=== PATIENT | male | born 1955 ===

== ENCOUNTER 2016-11-02 15:41 | Inpatient (IN) | payer MEDICAID, OTHER ==
[~2016-11-02] VITALS: Ht 167.6 cm; Wt 72.1 kg
[2016-11-02 18:00] VITALS: BP 119/80; PULSE 77; RESP 16; TEMP 98.2; O2SAT 92
[2016-11-02] MEDS ORDERED: BENZTROPINE MESYLATE 1 MG TAB PO PRN (20:30)
[2016-11-02] MEDS ORDERED: BENZTROPINE MESYLATE 2 MG/2 ML VIAL IM PRN (20:30)
[2016-11-02] MEDS ORDERED: ALUMINUM/MAGNESIUM/SIMETH 30 ML CUP PO PRN (20:30)
[2016-11-02] MEDS ORDERED: diphenhydrAMINE HCL 50 MG CAP - HS PRN PO (20:30)
[2016-11-02] MEDS ORDERED: hydrOXYzine HCL 50 MG TAB PO PRN (20:30)
[2016-11-02] MEDS ORDERED: MAGNESIUM HYDROXIDE SUSP 30 ML CUP PO PRN (20:30)
[2016-11-02] MEDS: NICOTINE 21 MG/24 HR PATCH T-DERMAL SCH (20:36)
[2016-11-02] MEDS: REMOVE OLD NICOTINE PATCH T-DERMAL SCH (21:00)
[2016-11-02] MEDS: BUDESONIDE-FORMOTEROL 160/4.5 MCG INHALER INH SCH (21:00)
[2016-11-02] MEDS: traZODone HCL 50 MG TAB PO SCH (21:05)
[2016-11-02] MEDS: GABAPENTIN 400 MG CAP PO SCH (21:06)
[2016-11-03 06:11] VITALS: BP 102/59; PULSE 64; RESP 16; TEMP 97.9; O2SAT 92
[2016-11-03] MEDS: BUDESONIDE-FORMOTEROL 160/4.5 MCG INHALER INH SCH ×2 (09:00→20:49)
[2016-11-03] MEDS: PANTOPRAZOLE SOD 40 MG DELAYED RELEASE TAB PO SCH (09:14)
[2016-11-03] MEDS: GABAPENTIN 400 MG CAP PO SCH ×4 (09:14→20:50)
[2016-11-03] MEDS: oxyCODONE/ACETAMINOPHEN 7.5 MG/325 MG TAB PO SCH ×3 (09:14→19:26)
[2016-11-03] MEDS: clonazePAM 1 MG TAB PO SCH ×2 (09:14→14:45)
[2016-11-03] MEDS: NICOTINE 21 MG/24 HR PATCH T-DERMAL SCH (09:19)
[2016-11-03 11:54] LABS: ANION GAP 6 MEQ/L (5-15); BICARBONATE 28.3 MEQ/L (21.0-32.0); BLOOD UREA NITROGEN 13 MG/DL (7-18); CHLORIDE 108 MEQ/L (98-107); GLOMERULAR FILTRATION RATE 79 ML/MIN (>89); POTASSIUM 4.3 MEQ/L (3.5-5.1); SODIUM (NA) 142 MEQ/L (136-145)
[2016-11-03 12:03] LABS: FREE T4 0.83 NG/DL (0.76-1.46); LDL CHOLESTEROL 108 MG/DL (0-99)
[2016-11-03 12:22] LABS: AUTOMATED NEUTROPHIL # 5.3 TH/MM3 (1.8-7.7); BASOPHIL # 0.2 TH/MM3 (0-0.2); BASOPHIL % 1.8 % (0.0-2.0); EOSINOPHIL # 0.3 TH/MM3 (0-0.4); EOSINOPHIL % 2.9 % (0.0-4.0); HEMATOCRIT 41.1 % (39.0-51.0); LYMPH % 24.1 % (9.0-44.0); LYMPHOCYTE # 2.1 TH/MM3 (1.0-4.8); MEAN CELL VOLUME 86.6 FL (80.0-100.0); MEAN CORPUSCULAR HGB CONC 32.4 % (32.0-36.0); MONO % 10.1 % (0.0-8.0); NEUT % 61.1 % (16.0-70.0); PLATELET COUNT 160 TH/MM3 (150-450); RED BLOOD COUNT 4.75 MIL/MM3 (4.50-5.90); RED CELL DISTRIBUTION WIDTH 17.2 % (11.6-17.2); WHITE BLOOD COUNT 8.7 TH/MM3 (4.0-11.0)
[2016-11-03 12:29] LABS: HEMO FLAGS DIFF FINAL
--- NOTE | 2016-11-03 15:27 | HHI.HP ---
Provisional Diagnosis Admission Date Nov 02, 2016 at 17:50 [place] I. Adjustment disorder with depressed mood, history of depression and anxiety [place] II. Unspecified personality disorder [place] III. COPD, GERD, HTN, lower back pain Certification of Person's Competence To Provide Express and Informed Consent I have personally examined Wilber Lemus , a person being served at [facility] on, Nov 03, 2016 15:17. Express and informed consent means consent voluntarily given in writing, by a competent person, after sufficient explanation and disclosure of the subject matter involved to enable the person to make a knowing and willful decision without any element of force, fraud, deceit, duress, or other form of constraint or coercion. This person is 18 years of age or older, is not now known to be incompetent to consent to treatment with a guardian advocate, and does not have a health care surrogate or proxy currently making medical treatment decisions. I have found this person to be one of the following: [X] Competent to provide express and informed consent, as defined above, for voluntary admission to this facility and is competent to provide express and informed consent for treatment. He/she has the consistent capacity to make well reasoned, willful, and knowing decisions concerning his or her medical or mental health treatment. The person fully and consistently understands the purpose of the admission for examination/placement and is fully capable of personally exercising all rights assured under [place] Incompetent to provide express and informed consent to voluntary admission, and this is incompetent to provide express and informed consent to treatment. The person must be transferred to involuntary status and a petition for a guardian advocate filed with the Circuit Court. [] Refusing to provide express and informed consent to voluntary admission but is competent to provide express and informed consent for treatment. The person must be discharged or transferred to involuntary status. Form shall be completed within 24 hours of a person's arrival at the receiving facility and filed in the clinical record of each person: 1. Admitted on a voluntary basis 2. Permitted to provide express and informed consent to his/her own treatment 3. Allowed to transfer from involuntary to voluntary status 4. Prior to permitting a person to consent to his or her own treatment after having been previously found incompetent to consent to treatment. History of Present Illness Capacity: Has Capacity HPI The patient is a 61-year-old man, self reported homeless, single, unemployed, on SSI, with psychiatric history of anxiety, depression, no previous psychiatric hospitalizations, 2 previous suicidal attempts, history of self cutting behavior, he is on trazodone 150 mg by PCP, medical history of GERD , back pain, COPD, came to the hospital voluntarily requested psychiatric admission due to suicidal ideation. He says that he has been feeling suicidal since he is homeless. He says that he has the plan to jump in front of a car. Yesterday before coming to the hospital he was delivered rating either jumping in front of a car or jumping off a bridge. But, he decided to come to the hospital looking for help. Patient is interested in social work administrator intervention to find a place to live. Patient reports depression due to his homelessness, anhedonia, hopelessness. He also reported difficulty sleeping at night and decrease energy and sleep. Patient contracted for safety in the unit. He denies visual and auditory hallucinations. Patient is oriented 3, no attention deficit, no gross cognitive impairment present. He denies the use of drugs and alcohol. Review of Systems Constitutional: DENIES: Diaphoretic episodes, Fatigue, Fever, Weight gain, Weight loss, Chills, Dizziness, Change in appetite, Night Sweats Endocrine: DENIES: Heat/cold intolerance, Polydipsia, Polyuria, Polyphagia Eyes: DENIES: Blurred vision, Diplopia, Eye inflammation, Eye pain, Vision loss , Photosensitivity, Double Vision Ears, nose, mouth, throat: DENIES: Tinnitus, Hearing loss, Vertigo, Nasal discharge, Oral lesions, Throat pain, Hoarseness, Ear Pain, Running Nose, Epistaxis, Sinus Pain, Toothache, Odynophagia Respiratory: DENIES: Apneas, Cough, Snoring, Wheezing, Hemoptysis, Sputum production, Shortness of breath Cardiovascular: DENIES: Chest pain, Palpitations, Syncope, Dyspnea on Exertion , PND, Lower Extremity Edema, Orthopnea, Claudication Gastrointestinal: DENIES: Abdominal pain, Black stools, Bloody stools, Constipation, Diarrhea, Nausea, Vomiting, Difficulty Swallowing, Anorexia Genitourinary: DENIES: Sexual dysfunction, Urinary frequency, Urinary incontinence, Urgency, Hematuria, Dysuria, Nocturia, Penile Discharge, Testicular Pain, Testicular Swelling Hematologic/lymphatic: DENIES: Bruising, Lymphadenopathy Immunologic/allergic: DENIES: Eczema, Urticaria Neurologic: DENIES: Abnormal gait, Headache, Localized weakness, Paresthesias, Seizures, Speech Problems, Tremor, Poor Balance Psychiatric: COMPLAINS OF: Suicidal Ideation Past Psych History Violence risk - self (6 mos) Increased Substance Abuse History Drugs/Alcohol past 12 months He denies the use of drugs and alcohol Past Family Social History Coded Allergies: No Known Allergies (Unverified , 11/03/16) Current Medications Medications (Trade) Dose Ordered Sig/Denae Route Start Time Stop Time Status Last Admin (Neurontin) 800 mg QID PO 11/02/16 21:00 11/03/16 14:44 (Percocet 7.5-325 Mg) 1 tab TID PO 11/03/16 09:00 11/03/16 14:45 (Desyrel) 150 mg HS PO 11/02/16 21:00 11/02/16 21:05 (KlonoPIN) 1 mg TID PO 11/03/16 09:00 11/03/16 14:45 (Protonix) 40 mg DAILY PO 11/03/16 09:00 11/03/16 09:14 (Symbicort 160-4.5 Inh) 2 puff BID INH 11/02/16 21:00 11/03/16 09:00 (Atarax) 50 mg Q6H PRN PO 11/02/16 20:30 11/02/16 21:05 (Cogentin) 1 mg Q12H PRN PO 11/02/16 20:30 (Cogentin Inj) 1 mg Q12H PRN IM 11/02/16 20:30 (Benadryl) 50 mg HS PRN PO 11/02/16 20:30 (Tylenol) 650 mg Q4H PRN PO 11/02/16 20:30 (Milk Of Magnesia Liq) 30 ml DAILY PRN PO 11/02/16 20:30 (Mag-Al Plus Susp Liq) 30 ml Q6H PRN PO 11/02/16 20:30 (Habitrol 21 Mg Patch.24 Hr) 1 patch DAILY T-DERMAL 11/02/16 20:36 11/03/16 09:19 Miscellaneous Information 1 HS T-DERMAL 11/02/16 21:00 11/02/16 21:00 Family History He denies psychiatric family hospital Social History Patient was born and raised in [place], he is homeless, single, supported by [facility], Patient's Strengths (min. 2) Verbal communication Physical Exam No withdrawal, no EPS, no tremors, Vital Signs Vital Signs Date Time Temp Pulse Resp B/P Pulse Ox O2 Delivery O2 Flow Rate FiO2 11/03/16 06:11 97.9 64 16 102/59 92 Mental Status Examination Appearance man, age appearing, irritable, cooperative Speech: Unremarkable Orientation: x3 Memory: Unremarkable Thought Process: Logical Thought Content: Unremarkable Hallucination Type: None Attention and Concentration: Good Suicidal Ideation: Yes Previous Suicide Attempts: Yes Homicidal Ideation: No Judgment: Poor Affect: Irritable Mood: Sad Motor Activity: Normal gait Assessment & Plan Problem List: (1) Adjustment disorder with depressed mood Assessment & Plan: Psychiatric evaluation the patient reports moderate to severe depressive symptoms in the context of recent status of homelessness. Patient reports insomnia, decreased appetite, low level of energy, hopelessness , helplessness, suicidal ideation with a plan of jumping in front of a car. Patient definitely needs psychiatric hospitalization for stabilization. Will monitor behavior and mood closely. It is possible that patient could be malingering with secondary gain of using the hospital as a intermediate and get director social, but more longitudinal observation and observation is needed in order to confirm this suspicion. At this moment patient definitely represents an acute danger to himself. We'll restart trazodone 150 at bedtime for depression and insomnia. 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 ICD Code: F43.21 Assessment & Plan Estimated LOS: Bong Nieves MD Nov 03, 2016 15:27
[2016-11-03 16:41] LABS: HEMOGLOBIN A1a 1.3 %; HEMOGLOBIN A1b 1.8 %; HEMOGLOBIN Ao 84.6 %; HEMOGLOBIN LA1C 2.1 %
[2016-11-03 19:23] VITALS: BP 127/80; PULSE 68; RESP 18; TEMP 97.8; O2SAT 94
[2016-11-03] MEDS: traZODone HCL 50 MG TAB PO SCH (20:50)
[2016-11-03] MEDS: REMOVE OLD NICOTINE PATCH T-DERMAL SCH (20:51)
[2016-11-04 05:21] VITALS: BP 105/58; PULSE 63; RESP 16; TEMP 97.9; O2SAT 92
[2016-11-04] MEDS: NICOTINE 21 MG/24 HR PATCH T-DERMAL SCH (08:39)
[2016-11-04] MEDS: oxyCODONE/ACETAMINOPHEN 7.5 MG/325 MG TAB PO SCH ×3 (08:40→18:16)
[2016-11-04] MEDS: PANTOPRAZOLE SOD 40 MG DELAYED RELEASE TAB PO SCH (08:40)
[2016-11-04] MEDS: GABAPENTIN 400 MG CAP PO SCH ×4 (08:40→21:09)
[2016-11-04] MEDS: BUDESONIDE-FORMOTEROL 160/4.5 MCG INHALER INH SCH ×3 (08:41→21:08)
[2016-11-04] MEDS: ACETAMINOPHEN 325 MG TAB PO PRN ×3 (11:02→13:10)
[2016-11-04 18:30] VITALS: BP 131/87; PULSE 67; RESP 17; TEMP 97.1; O2SAT 95
[2016-11-04] MEDS: traZODone HCL 50 MG TAB PO SCH ×2 (20:00→21:08)
[2016-11-04] MEDS: REMOVE OLD NICOTINE PATCH T-DERMAL SCH (20:47)
--- NOTE | 2016-11-04 22:44 | HHI.PYPN ---
Subjective Remarks Pt seen and discussed with staff. Staff report that pt has been uncooperative with care and milieu activities. He c/o depressed mood and states trazodone is only medication which has been helpful. He is irritable and demands that he be prescribed benzodiazepines and states that he will call his outpatient doctor to get them. Psychoeducation about risks of benzodiazepines discussed. Objective Alert: Yes [place]: Person, Place, Date, Situation Mood: Depressed Affect: Other (irritable) Memory Intact: Immediate, Recent, Remote Hallucinations: Other (none) Delusions: No Delusion Type: Other (none) Suicidal: Plan (denies), Ideation Homicidal: Ideation (denies) Insight/Judgment poor Vitals/IOs Vital Signs Date Time Temp Pulse Resp B/P Pulse Ox O2 Delivery O2 Flow Rate FiO2 11/04/16 18:30 97.1 67 17 131/87 95 Assessment & Plan Problem List: (1) Adjustment disorder with depressed mood ICD Code: F43.21 Assessment & Plan Titrate trazodone to target depression. Estimated LOS: days Justification for Cont. Inpt. monitoring for safety. Lesly Jones MD Nov 04, 2016 22:44
[2016-11-05 06:19] VITALS: BP 91/58; PULSE 57; RESP 18; TEMP 97.3; O2SAT 98
[2016-11-05] MEDS: oxyCODONE/ACETAMINOPHEN 7.5 MG/325 MG TAB PO SCH ×3 (08:21→18:00)
[2016-11-05] MEDS: GABAPENTIN 400 MG CAP PO SCH ×4 (08:21→21:18)
[2016-11-05] MEDS: PANTOPRAZOLE SOD 40 MG DELAYED RELEASE TAB PO SCH (08:22)
[2016-11-05] MEDS: NICOTINE 21 MG/24 HR PATCH T-DERMAL SCH (08:25)
[2016-11-05] MEDS: REMOVE OLD NICOTINE PATCH T-DERMAL SCH (08:25)
[2016-11-05] MEDS: ACETAMINOPHEN 325 MG TAB PO PRN (13:56)
[2016-11-05] MEDS ORDERED: DOCUSATE SODIUM 100 MG CAP PO ONE (14:30)
--- NOTE | 2016-11-05 14:54 | HHI.PYPN ---
Subjective Remarks Pt seen and discussed with staff. He has been compliant with medications and denies side effects. He remains depressed and but is less irritable and denies SI today. No HI. He c/o of dysphagia, stating he feels as if he has a knot in his throat. Pt is a heavy smoker. He states that he is having difficulty swallowing food and c/o of pain. Objective Alert: Yes [place]: Person, Place, Date, Situation Mood: Depressed Affect: Restricted Memory Intact: Immediate, Recent, Remote Hallucinations: Other (none) Delusions: No Delusion Type: Other (none) Suicidal: Ideation (denies) Homicidal: Ideation (denies) Insight/Judgment limitted Vitals/IOs Vital Signs Date Time Temp Pulse Resp B/P Pulse Ox O2 Delivery O2 Flow Rate FiO2 11/05/16 06:19 97.3 57 18 91/58 98 Assessment & Plan Problem List: (1) Adjustment disorder with depressed mood ICD Code: F43.21 Assessment & Plan Continue current tx plan as pt improving. Consult hospitalist for dysphagia. Estimated LOS: days Justification for Cont. Inpt. monitoring for safety Lesly Jones MD Nov 05, 2016 14:54
--- NOTE | 2016-11-05 17:07 | PD.CONS ---
HPI Service [facility] Consult Requested By Psychiatry team Reason for Consult Dysphasia Primary Care Physician Unknown Diagnoses: History of Present Illness Written by Shruthi Phillip, acting as scribe for Dr. Hoover on 11/05/16 at 16: 49. Patient is a 61-year-old with primary medical history of sciatica, diverticulitis, GERD who came into the hospital for suicidal ideation, depression. He is admitted to inpatient psychiatry unit for further evaluation. Consulted for dysphagia. Patient seen and examined today. Reports he has been having trouble swallowing associated with painful swallowing. States that this has been worsening for 3 weeks. Difficulty swallowing some liquids and try solid food. Reports 23 weight pound loss but attributes it to depression. He also complains of on and off nausea that also has been increasing. She also states that he is GERD is also increasing and the medication that he is taking now at the hospital is not helping him unlike when he takes omeprazole from home. Patient states last EGD was done about a year ago in [facility] they couldn't find any significant findings. Continues to have chronic pain managed by pain medications. Denies SOB/ dyspnea. Denies chest pain, palpitations, headaches, dizziness. Denies fevers, chills, diarrhea. Denies dysuria. Review of Systems Except as stated in HPI: all other systems reviewed are Neg Past Family Social History Allergies: Coded Allergies: No Known Allergies (Unverified , 11/03/16) Past Medical History GERD Back pain, sciatic Diverticulitis COPD Past Surgical History Multiple orthopedic surgeries Appendectomy Reported Medications Omeprazole 20 mg daily Active Ordered Medications Current Medications Medications (Trade) Dose Ordered Sig/Denae Route Start Time Stop Time Status Last Admin (Neurontin) 800 mg QID PO 11/02/16 21:00 11/05/16 12:27 (Percocet 7.5-325 Mg) 1 tab TID PO 11/03/16 09:00 11/05/16 12:27 (Desyrel) 150 mg HS PO 11/02/16 21:00 11/04/16 21:08 (Protonix) 40 mg DAILY PO 11/03/16 09:00 11/05/16 08:22 (Symbicort 160-4.5 Inh) 2 puff BID INH 11/02/16 21:00 11/04/16 21:08 (Atarax) 50 mg Q6H PRN PO 11/02/16 20:30 11/02/16 21:05 (Cogentin) 1 mg Q12H PRN PO 11/02/16 20:30 (Cogentin Inj) 1 mg Q12H PRN IM 11/02/16 20:30 (Benadryl) 50 mg HS PRN PO 11/02/16 20:30 (Tylenol) 650 mg Q4H PRN PO 11/02/16 20:30 11/05/16 13:56 (Milk Of Magnesia Liq) 30 ml DAILY PRN PO 11/02/16 20:30 11/04/16 13:15 (Mag-Al Plus Susp Liq) 30 ml Q6H PRN PO 11/02/16 20:30 (Habitrol 21 Mg Patch.24 Hr) 1 patch DAILY T-DERMAL 11/02/16 20:36 11/05/16 08:25 Miscellaneous Information 1 HS T-DERMAL 11/02/16 21:00 11/05/16 08:25 Family History Denies any significant family medical history Social History Denies alcohol use Smoker current a 1 pack per day Denies illicit drug use Physical Exam Vital Signs Vital Signs Date Time Temp Pulse Resp B/P Pulse Ox O2 Delivery O2 Flow Rate FiO2 11/05/16 06:19 97.3 57 18 91/58 98 11/04/16 18:30 97.1 67 17 131/87 95 Physical Exam GENERAL: This is a well-nourished, well-developed patient, in no apparent distress. SKIN: Warm and dry. HEAD: Normocephalic. EYES: Pupils equal round and reactive. Extraocular motions intact. No scleral icterus. No injection or drainage. ENT: Nose without bleeding. Throat without erythema. Uvula midline. Airway patent. NECK: Trachea midline. Supple. CARDIOVASCULAR: Regular rate and rhythm without murmurs, gallops, or rubs. RESPIRATORY: Clear to auscultation. Breath sounds equal bilaterally. No wheezes , rales, or rhonchi. GASTROINTESTINAL: Abdomen soft, nondistended. Slight tenderness to palpate midepigastric region. MUSCULOSKELETAL: Extremities without clubbing, cyanosis, or edema. NEUROLOGICAL: Awake and alert. No focal neuro deficit. Motor and sensory grossly within normal limits. Normal speech. Result Diagram: 11/03/16 1033 11/03/16 1033 Assessment and Plan Assessment and Plan Patient is a 61-year-old with primary medical history of sciatica, diverticulitis, GERD who came into the hospital for suicidal ideation, depression. He is admitted to inpatient psychiatry unit for further evaluation. Consulted for dysphagia. Suicidal ideation, depressive disorder - Managed by psychiatry team Dysphasia Odynophagia GERD - Has been ongoing for 3 weeks. Reports weight loss. Reports prior EGD in [place] no significant findings. - Continue Protonix 40 mg daily - Zofran for nausea - Consult GI, appreciate input and recommendations, dysphasia associated with odynophagia - Consult speech to evaluate dysphasia COPD, not in exacerbation Tobacco use - Continue Symbicort use - Smoking cessation counseled - Nicotine patch Chronic back pain, sciatica - Continue with Percocet 7.5/325 mg 3 times a day DVT prop ambulatory the consult was scribed by Ms.Iszenn Phillip ( [facility]). I, Dr.Mohammadreza Hoover, personally performed the physical exam, reviewed the clinical data and discussed the above- noted findings and plan with the patient. Code Status Full code Discussed Condition With Patient, nursing Shruthi Soto Nov 05, 2016 17:07 Mk Hoover MD Nov 05, 2016 17:32 Patient, nursing Shruthi Soto Nov 05, 2016 17:07
[2016-11-05] MEDS ORDERED: ONDANSETRON ODT 4 MG TAB PO PRN (17:15)
[2016-11-05 18:32] VITALS: BP 131/91; PULSE 72; RESP 18; TEMP 97.6; O2SAT 95
[2016-11-05] MEDS: BUDESONIDE-FORMOTEROL 160/4.5 MCG INHALER INH SCH (21:19)
[2016-11-05] MEDS: traZODone HCL 50 MG TAB PO SCH (21:31)
[2016-11-06 06:00] VITALS: BP 101/61; PULSE 61; RESP 18; TEMP 97.5; O2SAT 93
[2016-11-06] MEDS: SUCRALFATE 1 GM TAB PO SCH ×2 (06:04→15:32)
[2016-11-06] MEDS: oxyCODONE/ACETAMINOPHEN 7.5 MG/325 MG TAB PO SCH ×3 (08:23→17:53)
[2016-11-06] MEDS: GABAPENTIN 400 MG CAP PO SCH ×4 (08:23→20:52)
[2016-11-06] MEDS: BUDESONIDE-FORMOTEROL 160/4.5 MCG INHALER INH SCH ×2 (08:23→20:53)
[2016-11-06] MEDS: PANTOPRAZOLE SOD 40 MG DELAYED RELEASE TAB PO SCH ×2 (08:24→20:52)
[2016-11-06] MEDS: NICOTINE 21 MG/24 HR PATCH T-DERMAL SCH (08:25)
--- NOTE | 2016-11-06 09:03 | PD.CONS ---
HPI History of Present Illness This is a 61 year old male with a history of depression, who is currently in the inpatient psychiatric unit for evaluation and treatment of depression with suicidal ideation. GI has been consulted for evaluation of dysphagia with odynophagia. The patient reports that he has a long history of GERD and has been taken omeprazole 20 mg by mouth daily for the past 5 years. He last had an EGD about 2 years ago in [place], but cannot recall the findings. He reports that over the past month he has lost about 25 pounds, but he feels this is more related to his depression and his difficulty swallowing. He started having difficulty swallowing about 3-4 weeks ago with both liquids and solids getting caught in his upper esophagus. He states that when the solid food gets caught, he'll have to drink a large amount of fluids and sometimes he has to cough to bring it back up. He has associated odynophagia when the food is caught. He occasionally has nausea. He is not having any abdominal pain. He is having worsening symptoms with reflux and heartburn. He reports normally this is well controlled with his omeprazole, but since being in the hospital he is having daily symptoms with no relief with the Protonix. He occasionally uses ibuprofen at home but not on a regular basis. He denies any constipation, diarrhea, melena, or hematochezia. (Justina Bellamy) PFSH Past Medical History Sciatica GERD COPD History of diverticulitis Depression Past Surgical History Multiple orthopedic surgeries Endoscopy Appendectomy (Justina Bellamy) Coded Allergies: No Known Allergies (Unverified , 11/03/16) Medications Allergies Coded Allergies Type Severity Reaction Last Updated Verified No Known Allergies 11/03/16 No Family History Denies any pertinent family history Social History Smokes 1 pack of cigarettes per day No alcohol, no illicit drug use (Justina Bellamy) Review of Systems Constitutional: COMPLAINS OF: Fatigue, Weight loss, Change in appetite, DENIES : Fever, Chills Respiratory: COMPLAINS OF: Cough, DENIES: Shortness of breath Gastrointestinal: COMPLAINS OF: Nausea, Difficulty Swallowing, Anorexia, Odynophagia, Swelling of Abdomen, Heartburn, DENIES: Abdominal pain, Black stools, Bloody stools, Constipation, Diarrhea, Hematemesis Musculoskeletal: COMPLAINS OF: Joint pain Integumentary: DENIES: Rash, Jaundice Hematologic/lymphatic: DENIES: Bruising Neurologic: DENIES: Headache Psychiatric: COMPLAINS OF: Depression, DENIES: Confusion (JosesitoJustina) GI Exam Vitals I&O Vital Signs Date Time Temp Pulse Resp B/P Pulse Ox O2 Delivery O2 Flow Rate FiO2 11/06/16 06:00 97.5 61 18 101/61 93 11/05/16 18:32 97.6 72 18 131/91 95 I/O 11/05/16 11/05/16 11/05/16 11/06/16 11/06/16 11/06/16 06:59 14:59 22:59 06:59 14:59 22:59 Intake Total 240 ml Balance 240 ml Intake Oral 240 ml Physical Examination HEENT: Normocephalic; atraumatic; no jaundice. CHEST: CTA CARDIAC: RRR ABDOMEN: Soft, nondistended, nontender; no hepatosplenomegaly; bowel sounds are present in all four quadrants. EXTREMITIES: No clubbing, cyanosis, or edema. SKIN: Normal; no rash; no jaundice. DIRECTOR OF QUANTITATIVE RESEARCH: No focal deficits; alert and oriented times three. (BellamyJustina) Assessment and Plan Plan ASSESSMENT: - Dysphagia, Odynophagia. Pt with long hx of GERD, takes omeprazole at home. 3 -4 week hx of dysphagia with both liquids/solids getting caught in upper esophagus. She either has to drink a large amount of fluids or cough to bring the food boluses back up on the get caught. He has associated odynophagia. Last EGD was 2 years ago in [place], does not recall the findings. Protonix. Carafate. - GERD. Usually controlled with omeprazole 20mg po daily, but states he is having daily symptoms with the protonix. - Nausea. PPI, Carafate, Zofran prn. - Abn. weight loss, decreased appetite. 25 lb weight loss over past month- pt states more related to depression than dysphagia. - Depression with SI. Per psych - COPD per attending. PLAN: - Plan for egd +/- dilatation - Obtain consents - NPO after MN - Increase Protonix to 40mg po BID - Cont. Carafate - Zofran prn - Supportive care - Further recommendations to follow based on results of above - Pt seen and examined by Dr. Garza and myself and this note is written on his behalf (Justina Bellamy) Physician Comments Patient seen and examined Agree with above Continue with current supportive care Monitor labs Plan for an EGD tomorrow (Joshua Garza MD) Justina Bellamy Nov 06, 2016 09:03 Joshua Garza MD Nov 06, 2016 22:09
--- NOTE | 2016-11-06 16:21 | HHI.PYPN ---
Subjective Remarks Was psychiatric evaluation today patient is found in his bed, withdrawn, seems to be guarded, reports sad mood, anhedonia, hopelessness, helplessness, patient stated that he had a bad dream last night, he was treatment with people " it was a very scary dream", he seems to be irritable, reports suicidal thoughts , but not suicidal ideation or plan. She is compliant with medications, no significant side effects. Oriented 3, no gross cognitive impairment. Review of Systems Other No somatic complaints Objective Alert: Yes [place]: Person, Place, Date, Situation Mood: Depressed Affect: Restricted Memory Intact: Immediate, Recent, Remote Hallucinations: Other (none) Delusions: No Delusion Type: Other (none) Suicidal: Ideation (suicidal thoughts) Homicidal: Ideation (denies) Insight/Judgment Poor Vitals/IOs Vital Signs Date Time Temp Pulse Resp B/P Pulse Ox O2 Delivery O2 Flow Rate FiO2 11/06/16 06:00 97.5 61 18 101/61 93 Intake and Output 11/05/16 11/05/16 11/05/16 07:59 15:59 23:59 Intake Total 240 ml Balance 240 ml Assessment & Plan Problem List: (1) Adjustment disorder with depressed mood Assessment & Plan: Antidepressants were raised yesterday, today we'll continue current dose. Brief supportive psychotherapy provided. We'll continue monitoring mood and behavior. ICD Code: F43.21 Assessment & Plan Estimated LOS: days Justification for Cont. Inpt. She has an increased risk to decompensate are of the structured environment. Bong Nieves MD Nov 06, 2016 16:21
[2016-11-06] MEDS: traZODone HCL 50 MG TAB PO SCH (20:52)
[2016-11-06] MEDS: REMOVE OLD NICOTINE PATCH T-DERMAL SCH (20:56)
[2016-11-07 05:54] VITALS: BP 100/61; PULSE 74; RESP 17; TEMP 97.9; O2SAT 94
[2016-11-07] MEDS: SUCRALFATE 1 GM TAB PO SCH (06:32)
[2016-11-07] MEDS: NICOTINE 21 MG/24 HR PATCH T-DERMAL SCH ×2 (09:00→15:15)
[2016-11-07] MEDS: PANTOPRAZOLE SOD 40 MG DELAYED RELEASE TAB PO SCH (09:12)
[2016-11-07] MEDS: GABAPENTIN 400 MG CAP PO SCH ×3 (09:12→21:00)
[2016-11-07] MEDS: oxyCODONE/ACETAMINOPHEN 7.5 MG/325 MG TAB PO SCH (09:13)
[2016-11-07] MEDS: BUDESONIDE-FORMOTEROL 160/4.5 MCG INHALER INH SCH ×3 (09:13→21:00)
--- NOTE | 2016-11-07 09:21 | HHI.DS ---
Psychiatry Discharge Summary Inpatient Psychiatric care?: Yes Advance Directive: No Reason Not Provided: Due to Patient Condition Mental Health AdvanceDirective: No Health Care Proxy: No Admission Admission Date Nov 02, 2016 at 17:50 Admission Diagnosis: (1) Adjustment disorder with depressed mood ICD Code: F43.21 Brief History The patient is a 61-year-old man, self reported homeless, single, unemployed, on SSI, with psychiatric history of anxiety, depression, no previous psychiatric hospitalizations, 2 previous suicidal attempts, history of self cutting behavior, he is on trazodone 150 mg by PCP, medical history of GERD , back pain, COPD, came to the hospital voluntarily requested psychiatric admission due to suicidal ideation. He says that he has been feeling suicidal since he is homeless. He says that he has the plan to jump in front of a car. Yesterday before coming to the hospital he was delivered rating either jumping in front of a car or jumping off a bridge. But, he decided to come to the hospital looking for help. Patient is interested in transition social worker intervention to find a place to live. Patient reports depression due to his homelessness, anhedonia, hopelessness. He also reported difficulty sleeping at night and decrease energy and sleep. Patient contracted for safety in the unit. He denies visual and auditory hallucinations. Patient is oriented 3, no attention deficit, no gross cognitive impairment present. He denies the use of drugs and alcohol. Tobacco Use In Past 30 Days: 5 or More Cigarettes/Day Alcohol Use: Never Hospital Course Patient continues to be depressed, would be transferred to the surgical floor for surgical procedure, but would come back to psychiatry once surgical clear. Results Blood Pressure 100 / 61 Vital Signs Date Time Temp Pulse Resp B/P Pulse Ox O2 Delivery O2 Flow Rate FiO2 11/07/16 05:54 97.9 74 17 100/61 94 Laboratory Results Test 11/03/16 10:33 Hemoglobin A1c 5.7 % (4.3-6.0) Triglycerides Level 152 MG/DL (42-150) Cholesterol Level 190 MG/DL (120-200) LDL Cholesterol 108 MG/DL (0-99) HDL Cholesterol 52.0 MG/DL (40.0-60.0) Summary of Procedures Procedures done Pending results at discharge: No Medications # of Antipsychotic meds at D/C: 0 Approp Antipsych med options 1 - Minimum of three failed multiple trials of monotherapy. 2 - Documented plan to taper to monotherapy due to previous use of multiple meds OR cross-taper in progress at D/C. 3 - Documentation of augmentation of Clozapine. 4 - Justification other than those listed in allowable values 1-3, document here : Discharge Discharge Date: Nov 07, 2016 Discharge Diagnosis: (1) Adjustment disorder with depressed mood ICD Code: F43.21 Mental Status Exam at Disch elderly man, good hygiene, age appearing, calm, distant, guarded. His speech is poor. Affect is dysthymic, mood also dysthymic. No processes logical and coherent. Thought content is devoid of suicidal ideation, homicidal ideation, visual and auditory hallucinations. Insight, impulse control and judgment are fair. Cognition seems to be intact. Pt Condition on Discharge: Guarded Discharge Disposition: Disch to Another Hospital Discharge Instructions Diet Instructions: Heart Healthy Diet Activities you can perform: Weight Bearing as Katie Scheduled Appointment: Discharge Time > 30 minutes Discharge/Advance Care Plan Health Problems: (1) Adjustment disorder with depressed mood Goals to promote your health * To prevent worsening of your condition and complications * To maintain your health at the optimal level Directions to meet your goals Take your medications as prescribed Follow your dietary instruction Follow activity as directed Keep your appointments as scheduled Take your immunizations and boosters as scheduled If your symptoms worsen call your PCP, if no PCP go to Urgent Care Center or Emergency Room For 16/10 questions related to your inpatient stay or results of tests pending at discharge, please contact Dr. Bong Nieves at Smoking is Dangerous to Your Health. Avoid second hand smoking Bong Nieves MD Nov 07, 2016 09:21
[2016-11-07] MEDS ORDERED: GABA800T PO ×2 (10:06)
[2016-11-07] MEDS ORDERED: PANT20 PO (10:06)
[2016-11-07] MEDS ORDERED: TRAZ1TAB45 PO (10:06)
[2016-11-07] MEDS ORDERED: PERC7.5T13 PO (10:06)
[2016-11-07] MEDS ORDERED: ASPI325T PO (10:06)
[2016-11-07] MEDS ORDERED: ALBU6.7H INH (10:07)
[2016-11-07] MEDS ORDERED: ADVA500A INH (10:07)
[2016-11-07] MEDS ORDERED: RESP: ALBUTEROL 2.5 MG/IPRATROPIUM 0.5 MG NEB (PRN) ONE (11:11)
--- NOTE | 2016-11-07 13:49 | EKG ---
Date Performed: 11/07/2016 Time Performed: 08:46:41 PTAGE: 61 years EKG: Sinus rhythm NORMAL ECG NO PREVIOUS TRACING DOCTOR: Naseem Owens Interpretating Date/Time 11/07/2016 13:48:27
[2016-11-07] MEDS ORDERED: LORazepam 2 MG/ML VIAL IM PRN ×2 (14:30)
[2016-11-07] MEDS ORDERED: LORazepam 0.5 MG TAB PO PRN (14:30)
[2016-11-07] MEDS ORDERED: ASPIRIN 325 MG TAB PO SCH (14:30)
[2016-11-07] MEDS ORDERED: ALUMINUM/MAGNESIUM/SIMETH 30 ML CUP PO PRN (14:30)
[2016-11-07] MEDS ORDERED: MAGNESIUM HYDROXIDE SUSP 30 ML CUP PO PRN (14:30)
[2016-11-07] MEDS ORDERED: ACETAMINOPHEN 325 MG TAB PO PRN (14:30)
[2016-11-07] MEDS: PANTOPRAZOLE SOD 20 MG DELAYED RELEASE TAB PO SCH (15:00)
[2016-11-07 15:25] VITALS: BP 119/84; PULSE 71; RESP 18; TEMP 98.2; O2SAT 93
[2016-11-07] MEDS: oxyCODONE/ACETAMINOPHEN 7.5 MG/325 MG TAB PO PRN ×2 (16:18→20:58)
[2016-11-07] MEDS: traZODone HCL 50 MG TAB PO SCH (20:56)
[2016-11-07] MEDS: LORazepam 1 MG TAB PO PRN (20:57)
[2016-11-08] MEDS: oxyCODONE/ACETAMINOPHEN 7.5 MG/325 MG TAB PO PRN ×5 (00:37→18:32)
[2016-11-08 05:46] VITALS: BP 106/59; PULSE 58; RESP 16; TEMP 98; O2SAT 97
[2016-11-08] MEDS: LORazepam 1 MG TAB PO PRN (06:18)
[2016-11-08] MEDS: BUDESONIDE-FORMOTEROL 160/4.5 MCG INHALER INH SCH ×2 (09:00→21:00)
[2016-11-08] MEDS: REMOVE OLD NICOTINE PATCH T-DERMAL SCH ×2 (09:00→21:04)
[2016-11-08] MEDS: NICOTINE 21 MG/24 HR PATCH T-DERMAL SCH (09:39)
[2016-11-08] MEDS: GABAPENTIN 400 MG CAP PO SCH ×4 (09:39→21:00)
[2016-11-08] MEDS: PANTOPRAZOLE SOD 20 MG DELAYED RELEASE TAB PO SCH (09:39)
[2016-11-08] MEDS: CITALOPRAM HYDROBROMIDE 20 MG TAB PO SCH (10:45)
--- NOTE | 2016-11-08 12:28 | HHI.PR ---
Subjective Remarks Follow-up dysphagia, odynophagia, GERD and chronic back pain Patient is status post panendoscopy with biopsy and esophageal dilation 2016 Patient resting in bed in no acute distress awakens easily. Patient reports swallowing is, "as bad as it ever been," patient reports pain with swallowing. Pain is worse with liquids than solids. Per speech therapy evaluation today, "no presence of oropharyngeal this fascia or clinical symptoms of aspiration were noted." Patient offers no other complaints at this time appears to be in no acute distress. Patient denies shortness of breath chest pain nausea vomiting diarrhea constipation fevers or chills Objective Vitals Vital Signs Date Time Temp Pulse Resp B/P Pulse Ox O2 Delivery O2 Flow Rate FiO2 11/08/16 05:46 98.0 58 16 106/59 97 11/07/16 15:25 98.2 71 18 119/84 93 Objective Remarks GENERAL: This is a well-nourished, well-developed patient, in no apparent distress. SKIN: Warm and dry. HEAD: Normocephalic. EYES: Pupils equal round and reactive. Extraocular motions intact. No scleral icterus. No injection or drainage. ENT: Nose without bleeding. Throat without erythema. Uvula midline. Airway patent. NECK: Trachea midline. Supple. CARDIOVASCULAR: Regular rate and rhythm without murmurs, gallops, or rubs. RESPIRATORY: Clear to auscultation. Breath sounds equal bilaterally. No wheezes , rales, or rhonchi. GASTROINTESTINAL: Abdomen soft, nondistended. Slight tenderness to palpate midepigastric region. MUSCULOSKELETAL: Extremities without clubbing, cyanosis, or edema. NEUROLOGICAL: Awake and alert. No focal neuro deficit. Motor and sensory grossly within normal limits. Normal speech. Procedures 11/07/2016 panendoscopy with biopsy and esophageal dilation A/P Problem List: (1) Adjustment disorder with depressed mood ICD Code: F43.21 Status: Acute (2) GERD (gastroesophageal reflux disease) ICD Code: K21.9 Status: Acute (3) Dysphagia ICD Code: R13.10 Status: Acute Assessment and Plan Patient is a 61-year-old with primary medical history of sciatica, diverticulitis, GERD who came into the hospital for suicidal ideation, depression. He is admitted to inpatient psychiatry unit for further evaluation. Consulted for dysphagia. Suicidal ideation, depressive disorder - Managed by psychiatry team Dysphasia Odynophagia GERD - Has been ongoing for 3 weeks. Reports weight loss. Reports prior EGD in [place] no significant findings. - Status post panendoscopy with biopsy EGD and dilation 11/07/2016 - Continue Protonix 40 mg daily - Zofran for nausea - Consult GI, appreciate input and recommendations, dysphasia associated with odynophagia - Consult speech to evaluate dysphasia, per speech therapy evaluation today, no presence of oropharyngeal this fascia or clinical symptoms of aspiration were noted COPD, not in exacerbation Tobacco use - Continue Symbicort use - Smoking cessation counseled - Nicotine patch Chronic back pain, sciatica - Continue with Percocet 7.5/325 mg 3 times a day DVT prop ambulatory Code Status Full code Discussed Condition With Patient, nursing and Martha Chand Nov 08, 2016 12:28
--- NOTE | 2016-11-08 13:20 | HHI.PYPN ---
Subjective Remarks She was sent to live for psychiatric reevaluation, patient is found very irritable, upset. Patient states that he needs his clonazepam or Xanax for anxiety. Patient also is requesting to meet with the child protective services social worker for counseling at least twice a day. When he was explained that before prescribing benzodiazepines or other medication for anxiety have to be tried and also that counseling most probably won't happen more than once a day, he became agitated and verbally hostile, but he was verbally de-escalate it. Patient also is complaining that his pain has been undertreated by medical team. He was explained that he would be started in citalopram 20 mg and hydroxyzine 50 mg 3 times per day to help with depression and anxiety. He expresses his unhappiness with his regimen having that "I'm in a request to discharge or to change to another doctor". Review of Systems Other No somatic complaints at this moment Objective Alert: Yes [employer]: Person, Place, Date, Situation Mood: Angry Affect: Other (dysphoric) Memory Intact: Immediate, Recent, Remote Hallucinations: Other (none) Delusions: No Delusion Type: Other (none) Suicidal: Ideation (he denies at this moment) Homicidal: Ideation (denies) Insight/Judgment Poor Vitals/IOs Vital Signs Date Time Temp Pulse Resp B/P Pulse Ox O2 Delivery O2 Flow Rate FiO2 11/08/16 05:46 98.0 58 16 106/59 97 Assessment & Plan Problem List: (1) Adjustment disorder with depressed mood Assessment & Plan: On psychiatric evaluation today patient continues to report depression, but denies suicidal ideation. Patient is requesting benzodiazepines for more medication for pain. Also requesting more sessions of individual counseling. Today at had the impression that patient most probably his drug seeking. This is patient was wildly discussed with psychiatric team including nursing charge and child protective services social worker. Will monitor closely behavior and mood. I will restart hydroxyzine 50 mg every 8 hours and citalopram 20 mg for depression and anxiety. Extensive psychoeducation provided. ICD Code: F43.21 Assessment & Plan Estimated LOS: days Justification for Cont. Inpt. He has an elevated risk to decompensate at a lower level of care. Bong Nieves MD Nov 08, 2016 13:20
[2016-11-08] MEDS: hydrOXYzine HCL 50 MG TAB PO SCH ×2 (14:16→19:00)
[2016-11-08] MEDS: traZODone HCL 50 MG TAB PO SCH (21:00)
[2016-11-09] MEDS: hydrOXYzine HCL 50 MG TAB PO SCH ×3 (03:00→17:10)
[2016-11-09 05:34] VITALS: BP 91/53; PULSE 56; RESP 18; TEMP 97.4; O2SAT 95
[2016-11-09] MEDS: CITALOPRAM HYDROBROMIDE 20 MG TAB PO SCH (08:47)
[2016-11-09] MEDS: GABAPENTIN 400 MG CAP PO SCH ×4 (08:48→20:57)
[2016-11-09] MEDS: PANTOPRAZOLE SOD 20 MG DELAYED RELEASE TAB PO SCH (08:48)
[2016-11-09] MEDS: BUDESONIDE-FORMOTEROL 160/4.5 MCG INHALER INH SCH ×2 (08:49→21:00)
[2016-11-09] MEDS: NICOTINE 21 MG/24 HR PATCH T-DERMAL SCH (08:53)
[2016-11-09] MEDS: REMOVE OLD NICOTINE PATCH T-DERMAL SCH (08:53)
[2016-11-09] MEDS: oxyCODONE/ACETAMINOPHEN 7.5 MG/325 MG TAB PO PRN ×4 (08:53→20:58)
--- NOTE | 2016-11-09 09:51 | HHI.GIFU ---
Subjective Remarks Resting in bed. States that he is having pain when he swallows. He is also having some dysphagia- states solids are getting caught. He tolerated the scrambled eggs but was afraid to try anything else because he was afraid it would not go down. Heartburn slightly improved. (Justina Bellamy) Objective Vitals I&O Vital Signs Date Time Temp Pulse Resp B/P Pulse Ox O2 Delivery O2 Flow Rate FiO2 11/09/16 05:34 97.4 56 18 91/53 95 Physical Exam HEENT: Normocephalic; atraumatic; no jaundice. CHEST: CTA CARDIAC: RRR ABDOMEN: Soft, nondistended, nontender; no hepatosplenomegaly; bowel sounds are present in all four quadrants. EXTREMITIES: No clubbing, cyanosis, or edema. SKIN: Normal; no rash; no jaundice. HOME HEALTH CARE PHYSICIAN: No focal deficits; alert and oriented times three. (Justina Bellamy) Assessment and Plan Plan ASSESSMENT: - Dysphagia, Odynophagia. Pt with long hx of GERD, takes omeprazole at home. 3 -4 week hx of dysphagia with both liquids/solids getting caught in upper esophagus. She either has to drink a large amount of fluids or cough to bring the food boluses back up on the get caught. He has associated odynophagia. S/P EGD with dilation and biopsy (11/07/16)--- > normal egd, s/p 17 mm savory wire. Random esophageal bx without significant histopathologic abnormality. Pt continues to have difficulty with painful swallowing and states that food will get caught when he tries to eat. He tolerated the scrambled eggs, but was afraid to try anything else for fear of it becoming lodged in esophagus. S/P ST evaluation, regular diet with thin liquids. Protonix. Carafate. - GERD. PPI - Nausea. PPI, Carafate, Zofran prn. - Abn. weight loss, decreased appetite. 25 lb weight loss over past month- pt states more related to depression than dysphagia. - Depression with SI. Per psych - COPD per attending. PLAN: - BIMAL - PPI/Carafate - Zofran prn - Barium swallow - Supportive care - Further recommendations to follow based on results of above - Pt seen and examined by Dr. Garza and myself and this note is written on his behalf (Justina Bellamy) Physician Comments Patient seen and examined Agree with above Continue with current supportive care Monitor labs Barium swallow also unremarkable No obvious cause for dysphagia at this point patient may resume diet Further recommendations shall depend on his hospital course (Joshua Garza MD) Justina Bellamy Nov 09, 2016 09:51 Joshua Garza MD Nov 09, 2016 18:02
[2016-11-09] MEDS: SUCRALFATE 1 GM/10 ML CUP PO SCH ×3 (10:56→20:56)
--- NOTE | 2016-11-09 13:24 | HHI.PYPN ---
Subjective Remarks Patient was seen today for psychiatric reevaluation along with medical student Yesenia, patient was found in his room and shaving his face, he reports to be in a better mood today, he says that trazodone seems to be working ok, patient is future oriented, already focus in his discharge plan. Patient is oriented 3, compliant with medications, no significant side effects. Patient still reported some difficulty sleeping at night and with anxiety during the day, but hydroxyzine 50 mg 3 times a day seems to be working appropriately. Review of Systems Other No somatic complaints Objective Alert: Yes [place]: Person, Place, Date, Situation Mood: Calm Affect: Appropriate Memory Intact: Immediate, Recent, Remote Hallucinations: Other (none) Delusions: No Delusion Type: Other (none) Suicidal: Ideation (he denies at this moment) Homicidal: Ideation (denies) Insight/Judgment Improved Vitals/IOs Vital Signs Date Time Temp Pulse Resp B/P Pulse Ox O2 Delivery O2 Flow Rate FiO2 11/09/16 05:34 97.4 56 18 91/53 95 Assessment & Plan Problem List: (1) Adjustment disorder with depressed mood Assessment & Plan: We will increase trazodone to 200 mg at bedtime to address low mood and insomnia. ICD Code: F43.21 Assessment & Plan Estimated LOS: days Justification for Cont. Inpt. Patient has an increased chance to decompensate at the lower level of care. Bong Nieves MD Nov 09, 2016 13:24
--- NOTE | 2016-11-09 13:45 | HHI.PR ---
Subjective Remarks Follow-up dysphagia, odynophagia, GERD and chronic back pain Patient is status post panendoscopy with biopsy and esophageal dilation 2016 Patient resting in bed in no acute distress awakens easily. Patient reports swallowing continues to be painful described as a stabbing sensation. Pain is worse with liquids than solids. Patient reports he feels as though, "my rhythm is off," when he tries to swallow. Per speech therapy evaluation today, "no presence of oropharyngeal this fascia or clinical symptoms of aspiration were noted." Patient offers no other complaints at this time appears to be in no acute distress. Patient denies shortness of breath chest pain nausea vomiting diarrhea constipation fevers or chills Objective Vitals Vital Signs Date Time Temp Pulse Resp B/P Pulse Ox O2 Delivery O2 Flow Rate FiO2 11/09/16 05:34 97.4 56 18 91/53 95 Objective Remarks GENERAL: This is a well-nourished, well-developed patient, in no apparent distress. SKIN: Warm and dry. HEAD: Normocephalic. EYES: Pupils equal round and reactive. Extraocular motions intact. No scleral icterus. No injection or drainage. ENT: Nose without bleeding. Throat without erythema. Uvula midline. Airway patent. NECK: Trachea midline. Supple. CARDIOVASCULAR: Regular rate and rhythm without murmurs, gallops, or rubs. RESPIRATORY: Clear to auscultation. Breath sounds equal bilaterally. No wheezes , rales, or rhonchi. GASTROINTESTINAL: Abdomen soft, nondistended. Slight tenderness to palpate midepigastric region. MUSCULOSKELETAL: Extremities without clubbing, cyanosis, or edema. NEUROLOGICAL: Awake and alert. No focal neuro deficit. Motor and sensory grossly within normal limits. Normal speech. Procedures 11/07/2016 panendoscopy with biopsy and esophageal dilation A/P Problem List: (1) Adjustment disorder with depressed mood ICD Code: F43.21 Status: Acute (2) GERD (gastroesophageal reflux disease) ICD Code: K21.9 Status: Acute (3) Dysphagia ICD Code: R13.10 Status: Acute Assessment and Plan Patient is a 61-year-old with primary medical history of sciatica, diverticulitis, GERD who came into the hospital for suicidal ideation, depression. He is admitted to inpatient psychiatry unit for further evaluation. Consulted for dysphagia. Suicidal ideation, depressive disorder - Managed by psychiatry team Dysphasia Odynophagia GERD - Has been ongoing for 3 weeks. Reports weight loss. Reports prior EGD in [place] no significant findings. - Status post panendoscopy with biopsy EGD and dilation 11/07/2016 - Continue Protonix 40 mg daily - Zofran for nausea - Consult GI, appreciate input and recommendations, dysphasia associated with odynophagia - Consult speech to evaluate dysphasia, per speech therapy evaluation today, no presence of oropharyngeal this fascia or clinical symptoms of aspiration were noted - Barium swallow ordered and pending COPD, not in exacerbation Tobacco use reports new cough - Continue Symbicort use - Smoking cessation counseled - Nicotine patch - CXR ordered - CBC in AM Chronic back pain, sciatica - Continue with Percocet 7.5/325 mg 3 times a day DVT prop ambulatory Code Status Full code Discussed Condition With Patient, nursing and Martha Chand Nov 09, 2016 13:45
--- NOTE | 2016-11-09 15:12 | RADRPT ---
EXAM DATE/TIME: 11/09/2016 14:52 [facility] COMPARISON: No previous studies available for comparison. INDICATIONS : Cough. MEDICAL HISTORY : Chronic obstructive pulmonary disease. SURGICAL HISTORY : None. ENCOUNTER: Initial ACUITY: 1 day PAIN SCORE: 0/10 LOCATION: Bilateral chest FINDINGS: Bibasilar atelectatic changes are noted. The heart is normal. The pulmonary vascular pattern is agustina l. The lungs are otherwise clear. CONCLUSION: Bibasilar atelectatic changes. Ulises Sousa MD on November 09, 2016 at 15:09 Board Certified Radiologist. This report was verified electronically.
--- NOTE | 2016-11-09 15:49 | RADRPT ---
EXAM DATE/TIME: 11/09/2016 14:52 [facility] COMPARISON: No previous studies available for comparison. INDICATIONS : Dysphagia. FLUORO TIME: 2.1 minutes IMAGE COUNT: 14 CONTRAST: 1. E-Z HD Barium Sulfate (98% w/w) Liquid E-Z Paque Barium Sulfate (60% w/v, 41% w.w) MEDICAL HISTORY : Chronic obstructive pulmonary disease. SURGICAL HISTORY : endoscopy with biopsy and dilitation. ENCOUNTER: Initial ACUITY: 1 day PAIN SCORE: 9/10 LOCATION: Bilateral neck FINDINGS: Air-contrast views of the hypopharynx demonstrate a normal mucosal surface without filling defect. R apid sequence images of the hypopharynx and cervical esophagus during the passage of barium demonstra te a normal swallowing function. No evidence of aspiration. Multiphasic examination of the esophagu s demonstrates no esophageal fold thickening, ulceration, or filling defect. The gastroesophageal ju nction is normal in configuration without evidence of hiatal hernia. CONCLUSION: Unremarkable exam. Tio Gonzalez MD on November 09, 2016 at 15:42 Board Certified Radiologist. This report was verified electronically.
[2016-11-09 18:21] VITALS: BP 123/85; PULSE 68; RESP 16; TEMP 98; O2SAT 95
[2016-11-09] MEDS: PANTOPRAZOLE SOD 40 MG DELAYED RELEASE TAB PO SCH (20:57)
[2016-11-09] MEDS ORDERED: traZODone HCL 100 MG TAB PO SCH (21:00)
[2016-11-10] MEDS: hydrOXYzine HCL 50 MG TAB PO SCH ×2 (03:00→11:11)
[2016-11-10] MEDS: oxyCODONE/ACETAMINOPHEN 7.5 MG/325 MG TAB PO PRN ×3 (05:09→13:34)
[2016-11-10] MEDS: ALBUTEROL SULFATE 90 MCG/ACT HFA 18 GM INHALER INH PRN ×2 (05:11→08:39)
[2016-11-10 05:32] VITALS: BP 85/58; PULSE 60; RESP 18; TEMP 98
[2016-11-10] MEDS: SUCRALFATE 1 GM/10 ML CUP PO SCH ×2 (06:32→11:11)
[2016-11-10] MEDS: PANTOPRAZOLE SOD 40 MG DELAYED RELEASE TAB PO SCH (08:40)
[2016-11-10] MEDS: CITALOPRAM HYDROBROMIDE 20 MG TAB PO SCH (08:40)
[2016-11-10] MEDS: GABAPENTIN 400 MG CAP PO SCH ×2 (08:40→12:40)
[2016-11-10] MEDS: NICOTINE 21 MG/24 HR PATCH T-DERMAL SCH (08:40)
[2016-11-10] MEDS: REMOVE OLD NICOTINE PATCH T-DERMAL SCH (09:00)
[2016-11-10] MEDS: BUDESONIDE-FORMOTEROL 160/4.5 MCG INHALER INH SCH (09:00)
[2016-11-10 09:21] VITALS: BP 102/69
[2016-11-10 11:03] LABS: AUTOMATED NEUTROPHIL # 4.8 TH/MM3 (1.8-7.7); BASOPHIL # 0.3 TH/MM3 (0-0.2); BASOPHIL % 3.3 % (0.0-2.0); EOSINOPHIL # 0.2 TH/MM3 (0-0.4); EOSINOPHIL % 2.4 % (0.0-4.0); HEMATOCRIT 39.8 % (39.0-51.0); HEMO FLAGS DIFF FINAL; LYMPHOCYTE # 2.9 TH/MM3 (1.0-4.8); MEAN CELL VOLUME 85.7 FL (80.0-100.0); MEAN CORPUSCULAR HEMOGLOBIN 28.5 PG (27.0-34.0); MEAN CORPUSCULAR HGB CONC 33.3 % (32.0-36.0); MONO % 11.6 % (0.0-8.0); NEUT % 51.7 % (16.0-70.0); PLATELET COUNT 147 TH/MM3 (150-450); RED BLOOD COUNT 4.65 MIL/MM3 (4.50-5.90); RED CELL DISTRIBUTION WIDTH 17.4 % (11.6-17.2); WHITE BLOOD COUNT 9.3 TH/MM3 (4.0-11.0)
[2016-11-10] MEDS ORDERED: CELE20TA PO (12:51)
[2016-11-10] MEDS ORDERED: TRAZ50TA12 PO (12:51)
[2016-11-10] MEDS ORDERED: NEUR400C PO (12:51)
[2016-11-10] MEDS ORDERED: HYDR50TA94 PO (12:51)
--- NOTE | 2016-11-10 13:05 | HHI.DS ---
Psychiatry Discharge Summary Inpatient Psychiatric care?: No Advance Directive: No Reason Not Provided: Due to Patient Condition Mental Health AdvanceDirective: No Health Care Proxy: No Admission Admission Date Nov 02, 2016 at 17:50 Admission Diagnosis: (1) Adjustment disorder with depressed mood ICD Code: F43.21 Brief History The patient is a 61-year-old man, self reported homeless, single, unemployed, on SSI, with psychiatric history of anxiety, depression, no previous psychiatric hospitalizations, 2 previous suicidal attempts, history of self cutting behavior, he is on trazodone 150 mg by PCP, medical history of GERD , back pain, COPD, came to the hospital voluntarily requested psychiatric admission due to suicidal ideation. He says that he has been feeling suicidal since he is homeless. He says that he has the plan to jump in front of a car. Yesterday before coming to the hospital he was delivered rating either jumping in front of a car or jumping off a bridge. But, he decided to come to the hospital looking for help. Patient is interested in social services manager intervention to find a place to live. Patient reports depression due to his homelessness, anhedonia, hopelessness. He also reported difficulty sleeping at night and decrease energy and sleep. Patient contracted for safety in the unit. He denies visual and auditory hallucinations. Patient is oriented 3, no attention deficit, no gross cognitive impairment present. He denies the use of drugs and alcohol. Tobacco Use In Past 30 Days: 5 or More Cigarettes/Day Alcohol Use: Never Hospital Course Patient was admitted in the psychiatric unit due to depressive symptoms and suicidal ideation. Appropriate safety measure were taken. Psychosocial and psychiatric assessment were done. Patient was restarted in psychotropics, individual and group psychotherapy. Patient was also seen by hospitalist for underlying medical conditions. Since the beginning of the hospitalization patient stated that he has a long history of suicidal thoughts, self cutting behavior and chronic depression. During the hospitalization patient was demanding, with a pronounced drug seeking behavior of benzodiazepines and opiates, also sexually inappropriate with social workers. Since patient did not have a clear indication for benzodiazepines and due to the potential for abuse of these drugs I discontinue clonazepam 1 mg twice a day. Patient became very upset with me stating that without benzodiazepines he can become even more suicidal. I started him in hydroxyzine 50 mg 3 times a day and increase trazodone to 200 mg at bedtime. With supportive psychotherapy, insight oriented psychotherapy and medication patient's mood improved. He agree with be discharged to a half-way, but threatened psychiatric team of coming back with depression and suicidal ideation if he is not discharged with clonazepam and opiates. I clarified that there is no indication for this medication at this moment. It is clear that this is pure antisocial behavior and not secondary to any major psychiatric illness decompensation. At this moment I slag mixer the patient does not benefit of psychiatric admission. Results Blood Pressure 102 / 69 Vital Signs Date Time Temp Pulse Resp B/P Pulse Ox O2 Delivery O2 Flow Rate FiO2 11/10/16 09:21 102/69 11/10/16 05:32 98.0 60 18 11/09/16 18:21 95 Laboratory Tests Test 11/10/16 09:59 Red Cell Distribution Width 17.4 % (11.6-17.2) Platelet Count 147 TH/MM3 (150-450) Monocytes (%) (Auto) 11.6 % (0.0-8.0) Basophils (%) (Auto) 3.3 % (0.0-2.0) Monocytes # (Auto) 1.1 TH/MM3 (0-0.9) Basophils # (Auto) 0.3 TH/MM3 (0-0.2) Summary of Procedures No procedures Imaging Last Impressions Chest X-Ray 11/09/16 0000 Signed Impressions: Service Date/Time: October 14:52 - CONCLUSION: Bibasilar atelectatic changes. Ulises Sousa MD Barium Swallow X-Ray 11/09/16 0000 Signed Impressions: Service Date/Time: October 14:52 - CONCLUSION: Unremarkable exam. Tio Gonzalez MD Pending results at discharge: No Medications # of Antipsychotic meds at D/C: 0 Approp Antipsych med options 1 - Minimum of three failed multiple trials of monotherapy. 2 - Documented plan to taper to monotherapy due to previous use of multiple meds OR cross-taper in progress at D/C. 3 - Documentation of augmentation of Clozapine. 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, time, but irritable and demanding. His speech is fluent and spontaneous. His mood is "irritated", affect is restricted. Thought process is linear, coherent and relevant. Thought content is devoid of homicidal ideation, visual and auditory hallucinations. Patient endorses suicidal thoughts, chronic, for a long time, no specific plan at the moment. Insight, impulse control, judgment are fair. Cognition is intact Pt Condition on Discharge: Guarded Discharge Disposition: Disch to Another Hospital Discharge Instructions Diet Instructions: Heart Healthy Diet Activities you can perform: Weight Bearing as Katie Scheduled Appointment: Prashant Callahan Act Appointment Date: Nov 13, 2016 Appointment Time: 7:30 a.m. Discharge Time > 30 minutes Discharge/Advance Care Plan Health Problems: (1) Adjustment disorder with depressed mood Goals to promote your health * To prevent worsening of your condition and complications * To maintain your health at the optimal level Directions to meet your goals Take your medications as prescribed Follow your dietary instruction Follow activity as directed Keep your appointments as scheduled Take your immunizations and boosters as scheduled If your symptoms worsen call your PCP, if no PCP go to Urgent Care Center or Emergency Room For 16/10 questions related to your inpatient stay or results of tests pending at discharge, please contact Dr. Bong Nieves at Smoking is Dangerous to Your Health. Avoid second hand smoking Bong Nieves MD Nov 10, 2016 13:05
== END 2016-11-10 14:40 | disposition home or self-care (01) | DRG 881 ==
LOC: H260 17:50 → UNDODISIN 11-07 09:20
PROVIDERS: ADMIT Psychiatry & Neurology Psychiatry; ATTEND Psychiatry & Neurology Psychiatry
DX: F43.21 Adjustment disorder with depressed mood (principal); R13.10 Dysphagia, unspecified; R45.851 Suicidal ideations; I10 Essential (primary) hypertension; J44.9 Chronic obstructive pulmonary disease, unspecified; F60.9 Personality disorder, unspecified; K21.9 Gastro-esophageal reflux disease without esophagitis; G89.29 Other chronic pain; M54.30 Sciatica, unspecified side; G47.00 Insomnia, unspecified; F41.9 Anxiety disorder, unspecified; F17.210 Nicotine dependence, cigarettes, uncomplicated; R47.02 Dysphasia; Z59.0 Homelessness; Z79.899 Other long term (current) drug therapy; Z76.5 Malingerer [conscious simulation]
CPT/HCPCS: 71010; 74230; 80048; 80061; 83036; 84439; 84443; 85025; 88305; 93005; 94664; C1769; J7120

== ENCOUNTER → 2016-11-07 | Day surgery (SDC) | payer MEDICAID, OTHER ==
[~2016-11-07] VITALS: Ht 168.9 cm; Wt 68.5 kg
[~2016-11-07] MED LIST: ADVA500A INH; ALBU6.7H INH; ASPI325T PO; CELE20TA PO; CHLORHEXIDINE GLUCONATE 2 % 1 PACK (2 CLOTHS) TOPICAL PRN; GABA800T PO; HYDR50TA94 PO; INSULIN HUMAN REGULAR 1,000 UNITS/10 ML VIAL SQ PRN; LACTATED RINGER'S 1000 ML IV PRN; METOPROLOL TARTRATE 25 MG TAB PO PRN; NEUR400C PO; PANT20 PO; PERC7.5T13 PO; POVIDONE IODINE 5% (ANTISEPSIS KIT) 4 APPLICATIONS EACH NARE PRN; PROPOFOL 200 MG/20 ML AMP IV ONE; SODIUM CHLORID 0.9% 500 ML IV PRN; TRAZ1TAB45 PO; TRAZ50TA12 PO
[2016-11-07 10:13] VITALS: BP 116/81; PULSE 66; RESP 20; TEMP 98.5; O2SAT 90
--- NOTE | 2016-11-07 12:41 | PD.PROCEDR ---
GI Procedure PROCEDURE PERFORMED EGD with dilation and biopsy INDICATION FOR PROCEDURE Dysphagia PROCEDURE: The procedure, risks and benefits were discussed with Mr. Lemus and informed consent was obtained. Anesthesia sedated him with Diprivan. He was placed in the left lateral decubitus position. EGD: The Pentax videoscope was introduced through the oropharynx and advanced to the second portion of the duodenum under direct visualization. Retroflexion was performed in the stomach. FINDINGS: Esophagus this appeared to be normal this was dilated with size 17 mm savory [id number] postdilatation view was satisfactory with no tears or blood biopsies were taken from the distal esophagus Stomach this was unremarkable within normal limits Duodenum this was normal ESTIMATED BLOOD LOSS: None SPECIMENS REMOVED: Esophageal biopsies COMPLICATIONS: None IMPRESSION: Normal EGD PLAN: Await biopsy Supportive care Consider barium swallow Joshua Garza MD Nov 07, 2016 12:41
[2016-11-07 12:45] VITALS: BP 114/86; PULSE 71; RESP 18; TEMP 97.4; O2SAT 91
== END ==
LOC: HSDC 09:56
PROVIDERS: ATTEND Internal Medicine Gastroenterology
DX: K22.2 Esophageal obstruction (principal); R13.10 Dysphagia, unspecified
CPT/HCPCS: 43239; 43248; 88305; 94664; C1769; J7120